=== PATIENT | female | born 1995 | race Caucasian/White ===

== ENCOUNTER 2020-08-27 20:17 | Emergency (ER) | payer OTHER, SELFPAY ==
[2020-08-27 20:49] VITALS: BP 102/70; PULSE 105; RESP 18; TEMP 37; O2SAT 96; BMI 34.0
--- NOTE | 2020-08-27 20:59 | ED.PREGNANCY ---
HPI - General Chief complaint: OB Stated complaint: 5 MONTHS PREG SPOTTING Time Seen by Provider: 08/27/20 20:58 Source: patient Mode of arrival: ambulatory Limitations: no limitations History of Present Illness HPI Narrative: This is a 25-year-old female at 19 and 3 currently with her 1st child and denies any complications thus far, receives her care at [facility]. She states she was recently treated for BV but has completed that course and states that for the past 3 days she has been having lower back discomfort that she has been treating with [id number] Tylenol 500 mg. in addition, patient states cramping discomfort bilaterally across the inguinal regions and states that she was most concerned that she had started developing spotting today that stained her underwear but denies any change in the inguinal and lower back discomfort that she had been experiencing. Otherwise, she denies urinary pain / burning / frequency, headaches, visual disturbance, shortness of breath, lower extremity swelling, fevers, chills. Related Data Allergies Allergy/AdvReac Type Severity Reaction Status Date / Time bee pollen [BEE STINGS] Allergy Severe ANAPHYLAXIS Unverified 06/15/20 16:33 Review of Systems Review of Systems: Pertinent positives and negatives as stated in HPI 10 point review of systems otherwise negative. PMFSH Past Medical History Source: nursing notes reviewed Medical History Asthma Social History Social History Alcohol intake: never Smoking Status: Never smoker Use of substances other than those prescribed or required for medical reasons: No Advance Directives: No Physical Exam Vital Signs: Vital Signs: Last Vital Signs Temp 97.8 F 08/27/20 23:40 Pulse 89 08/27/20 23:40 Resp 18 08/27/20 23:40 BP 98/62 08/27/20 23:40 Pulse Ox 98 08/27/20 23:40 Body Mass Index 34.0 VITAL SIGNS: Reviewed. GENERAL: Well developed, well nourished, in no acute distress. HEAD: Normocephalic/atraumatic, EYES: PERRLA, EOMI intact without pain, no nystagmus/pallor/icterus noted EARS: Ext canals without abnormality, TMs non-bulging and non-erythematous NOSE: Nares patent bilateral OROPHARYNX: no oral lesions noted, posterior pharynx clear and non-erythematous without noted tonsillar enlargement/erythema/exudates NECK: Supple, no adenopathy LUNGS: Normal breath sounds. No adventitious sounds or accessory muscle use. SpO2<96> CARDIOVASCULAR: Regular rate and rhythm without noted murmurs, no JVD or lower extremity edema. ABDOMEN: Soft, Gravid, non-tender, non-distended with bowel sounds. No rigidity. No guarding. No palpable masses or hernias noted MUSCULOSKELETAL: No tenderness, deformities, or effusions noted on gross inspection. EXTREMITIES: No cyanosis, clubbing or edema. SKIN: Inspection of the skin reveals no rashes, ulcerations, jaundice, pallor, or petechiae. NEUROLOGIC: Alert and oriented x 4. Strength and sensation to light touch were grossly intact x 4. Course Course Course Narrative: This is a 25-year-old female with history and clinical presentation suggestive of pain was spotting and otherwise uncomplicated will evaluate for previa, infection. Review of all investigation shows leukocytosis however this is felt to be likely as there is no evidence for infection of the urine and abdominal exam is benign and no respiratory symptoms. All chemistry results are within normal limits and ultrasound is negative for subchorionic hemorrhage and read as an anterior placenta ( no description of previa) with a closed cervix, active fetus with FHR- 143bpm. 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 She was provided with strict return precautions. MDM - OB/Uterine Contractions Lab Data Result diagrams: 08/27/20 21:10 08/27/20 21:10 Labs: Lab Results 08/27/20 08/27/20 08/27/20 Range/Units 21:10 21:10 21:10 WBC 14.5 H (4.8-10.8) X10*3/uL RBC 4.08 L (4.20-5.50) X10*6/uL Hgb 12.1 (12.0-16.0) g/dl Hct 36.4 L (37-47) % MCV 89.2 (80-98) fL MCH 29.7 (27.0-33.0) pg MCHC 33.2 (31.0-35.0) g/dl RDW 12.1 (11.0-16.0) % Plt Count 242 (160-400) X10*3/uL MPV 9.8 (9.4-12.3) fL Immature Gran % (Auto) 0.4 (0.0-0.4) % Neut % (Auto) 76.0 H (45-73) % Lymph % (Auto) 18.2 L (20-40) % [place] % (Auto) 4.5 (2-11) % Eos % (Auto) 0.7 (0-4) % Baso % (Auto) 0.2 (0-2) % Lymph # (Auto) 2.6 (1.2-4.9) X10*3/uL [place] # (Auto) 0.7 (0.1-1.2) X10*3/uL Eos # (Auto) 0.1 (0.0-0.4) X10*3/uL Baso # (Auto) 0.0 (0.0-0.2) X10*3/uL Abs Immat Gran (auto) 0.06 H (0.00-0.03) X10*3/uL Absolute Neuts (auto) 11.0 H (2.0-8.3) X10*3/uL Absolute Nucleated RBC 0.000 (0.0-0.012) X10*3/uL Nucleated RBC % (auto) 0.0 (0.0-0.2) /100WBC Sodium 137 (135-145) mmol/L Potassium 3.8 (3.3-5.1) mmol/l Chloride 104 (96-108) mmol/L Carbon Dioxide 23 (22-29) mmol/L Anion Gap 14 (12-20) BUN 7 L (9-16) mg/dL Creatinine 0.51 (0.5-1.4) mg/dL Estim Creat Clear Calc 164.6 Estimated GFR > 60 Random Glucose 90 (60-115) mg/dL Calcium 8.6 (8.4-10.2) mg/dL Total Bilirubin 0.3 (0.0-1.0) mg/dL AST 11 (5-31) U/L ALT 8 (0-31) U/L Alkaline Phosphatase 56 (39-117) U/L Total Protein 6.8 (6.5-8.0) g/dL Albumin 3.9 (3.5-5.0) g/dL Beta HCG, Quant 10833 mIU/mL Urine Color YELLOW Urine Appearance CLEAR Urine pH 6.5 (5.0-8.0) Ur Specific [place] 1.020 (1.005-1.025) Urine Protein NEG (NEG-TRACE) MG/DL Urine Glucose (UA) NEG (NEG) MG/DL Urine Ketones NEG (NEG) MG/DL Urine Blood 1+ H (NEG) Urine Nitrite NEG (NEG) Ur Leukocyte Esterase NEG (NEG) Urine RBC 1-4 (0) /HPF Urine WBC 0 (0-4) /HPF Ur Squamous Epith Cells TRACE /LPF Urine Bacteria TRACE /LPF Urine Test POSITIVE H (NEGATIVE) Blood Type 08/27/20 Range/Units 21:10 WBC (4.8-10.8) X10*3/uL RBC (4.20-5.50) X10*6/uL Hgb (12.0-16.0) g/dl Hct (37-47) % MCV (80-98) fL MCH (27.0-33.0) pg MCHC (31.0-35.0) g/dl RDW (11.0-16.0) % Plt Count (160-400) X10*3/uL MPV (9.4-12.3) fL Immature Gran % (Auto) (0.0-0.4) % Neut % (Auto) (45-73) % Lymph % (Auto) (20-40) % [place] % (Auto) (2-11) % Eos % (Auto) (0-4) % Baso % (Auto) (0-2) % Lymph # (Auto) (1.2-4.9) X10*3/uL [place] # (Auto) (0.1-1.2) X10*3/uL Eos # (Auto) (0.0-0.4) X10*3/uL Baso # (Auto) (0.0-0.2) X10*3/uL Abs Immat Gran (auto) (0.00-0.03) X10*3/uL Absolute Neuts (auto) (2.0-8.3) X10*3/uL Absolute Nucleated RBC (0.0-0.012) X10*3/uL Nucleated RBC % (auto) (0.0-0.2) /100WBC Sodium (135-145) mmol/L Potassium (3.3-5.1) mmol/l Chloride (96-108) mmol/L Carbon Dioxide (22-29) mmol/L Anion Gap (12-20) BUN (9-16) mg/dL Creatinine (0.5-1.4) mg/dL Estim Creat Clear Calc Estimated GFR Random Glucose (60-115) mg/dL Calcium (8.4-10.2) mg/dL Total Bilirubin (0.0-1.0) mg/dL AST (5-31) U/L ALT (0-31) U/L Alkaline Phosphatase (39-117) U/L Total Protein (6.5-8.0) g/dL Albumin (3.5-5.0) g/dL Beta HCG, Quant mIU/mL Urine Color Urine Appearance Urine pH (5.0-8.0) Ur Specific [place] (1.005-1.025) Urine Protein (NEG-TRACE) MG/DL Urine Glucose (UA) (NEG) MG/DL Urine Ketones (NEG) MG/DL Urine Blood (NEG) Urine Nitrite (NEG) Ur Leukocyte Esterase (NEG) Urine RBC (0) /HPF Urine WBC (0-4) /HPF Ur Squamous Epith Cells /LPF Urine Bacteria /LPF Urine Test (NEGATIVE) Blood Type O Positive Discharge Plan Discharge Clinical Impression: Vaginal bleeding during , Pain of round ligament during Patient Disposition: Home, Self-Care Additional Instructions: 1. Tylenol 1000 mg, orally, every 6 hours as needed for discomfort. Do not exceed 4000 mg within 24 hours. 2. You must call your tire molder 1st thing in the morning to discuss your visit here in this emergency department an arrangement for re-evaluation as indicated by that specialist. 3. please do not hesitate to return to the emergency department if you began experiencing worsening vaginal bleeding or begin experiencing worsening abdominal discomfort / cramping. The patient and/or family acknowledge understanding of results (as applicable), diagnosis, treatment plan, need for follow up, and symptoms that should prompt a return to the emergency room. Referrals: Physician,No [Primary Care Provider] - 2 days (Re-evaluation for vaginal spotting)
[2020-08-27] MEDS: 0.9 % Sodium Chloride 1,000 ML 1000 ML IV (21:12)
[2020-08-27 21:16] LABS: MANUAL DIFF FLAG NO
[2020-08-27 21:17] LABS: Basophils Percent Auto 0.2 % (0-2); Eosinophils Absolute Auto 0.1 X10*3/uL (0.0-0.4); Eosinophils Percent Auto 0.7 % (0-4); Hematocrit 36.4 % (37-47); Hemoglobin 12.1 g/dl (12.0-16.0); Imm Gran Abs Auto 0.06 X10*3/uL (0.00-0.03); Imm Gran Pct Auto 0.4 % (0.0-0.4); Lymphocytes Absolute Auto 2.6 X10*3/uL (1.2-4.9); Lymphocytes Percent Auto 18.2 % (20-40); Mean Corpuscular HGB Conc 33.2 g/dl (31.0-35.0); Mean Corpuscular Hemoglobin 29.7 pg (27.0-33.0); Mean Corpuscular Volume 89.2 fL (80-98); Mean Platelet Volume 9.8 fL (9.4-12.3); Monocytes Absolute Auto 0.7 X10*3/uL (0.1-1.2); Monocytes Percent Auto 4.5 % (2-11); Platelet Count 242 X10*3/uL (160-400); Red Blood Count 4.08 X10*6/uL (4.20-5.50); Red Cell Distribution Width 12.1 % (11.0-16.0); White Blood Count 14.5 X10*3/uL (4.8-10.8)
[2020-08-27 21:19] LABS: Glucose Urine UA NEG (NEG); Leukocyte Esterase Urine NEG (NEG); Nitrite Urine NEG (NEG); PH 6.5 (5.0-8.0); Urine Blood 1+ (NEG); Urine Ketones NEG (NEG); Urine Protein NEG (NEG-TRACE)
[2020-08-27 21:21] LABS: Appearance Urine CLEAR; Color Urine YELLOW; Urine Pregnancy POSITIVE (NEGATIVE)
[2020-08-27 21:22] LABS: UPreg QC Valid YES
--- NOTE | 2020-08-27 21:25 | US_ITS ---
EXAMINATION: ULTRASOUND OB LIMITED CLINICAL INFORMATION: . Spotting and cramping. COMPARISON: None TECHNIQUE: Limited transabdominal ultrasound performed of the fetus there is FINDINGS: Anteverted uterus. Cervical length 3.1 cm. Closed cervix. Anterior placenta. No subchorionic hemorrhage. Breech presentation of the fetus. Active fetus. Normal heart rate of 143 bpm. US/US OB limited IMPRESSION: Single live intrauterine . Normal heart rate.
[2020-08-27 21:42] LABS: Alanine Aminotransferase 8 U/L (0-31); Albumin Level 3.9 g/dL (3.5-5.0); Alkaline Phosphatase 56 U/L (39-117); Anion Gap 14 (12-20); Aspartate Amino Transferase 11 U/L (5-31); Bilirubin Total 0.3 mg/dL (0.0-1.0); Blood Urea Nitrogen 7 mg/dL (9-16); Calcium 8.6 mg/dL (8.4-10.2); Carbon Dioxide 23 mmol/L (22-29); Chloride 104 mmol/L (96-108); Creatinine Clr Calc Pharmacy 164.6; Estimated Glomerular Filt Rate > 60; Glucose Random 90 mg/dL (60-115); Potassium 3.8 mmol/l (3.3-5.1); Sodium 137 mmol/L (135-145); Total Protein 6.8 g/dL (6.5-8.0)
[2020-08-27 22:09] LABS: HCG Quantitative 24254 mIU/mL
[2020-08-27 22:38] LABS: Bacteria Urine TRACE /LPF; Squamous Epithelial Cell Urine TRACE /LPF; WBC Urine 0 /HPF (0-4)
[2020-08-27 22:42] VITALS: BP 115/70; PULSE 83; RESP 18; TEMP 36.6; O2SAT 99
[2020-08-27 23:40] VITALS: BP 98/62; PULSE 89; RESP 18; TEMP 36.6; O2SAT 98
== END 2020-08-28 01:06 | disposition home or self-care (01) ==
PROVIDERS: Emergency Provider Student in an Organized Health Care Education/Training Program
DX: O26.92 Pregnancy related conditions, unspecified, second trimester (principal); Z3A.20 20 weeks gestation of pregnancy; Z37.9 Outcome of delivery, unspecified
CPT/HCPCS: 36415; 76815; 80053; 81001; 81025; 84702; 85025; 86900; 86901; 96360; 99284

== ENCOUNTER 2020-09-26 10:43 | Emergency (ER) | payer OTHER, SELFPAY ==
[2020-09-26 11:09] VITALS: BP 107/64; PULSE 114; RESP 18; TEMP 36.3; O2SAT 97; BMI 34.0
[2020-09-26 16:11] LABS: MANUAL DIFF FLAG NO
[2020-09-26 16:13] LABS: Basophils Percent Auto 0.2 % (0-2); Eosinophils Absolute Auto 0.1 X10*3/uL (0.0-0.4); Eosinophils Percent Auto 0.6 % (0-4); Hematocrit 37.7 % (37-47); Hemoglobin 12.5 g/dl (12.0-16.0); Imm Gran Abs Auto 0.06 X10*3/uL (0.00-0.03); Imm Gran Pct Auto 0.4 % (0.0-0.4); Lymphocytes Absolute Auto 2.5 X10*3/uL (1.2-4.9); Lymphocytes Percent Auto 15.8 % (20-40); Mean Corpuscular HGB Conc 33.2 g/dl (31.0-35.0); Mean Corpuscular Volume 90.6 fL (80-98); Mean Platelet Volume 9.8 fL (9.4-12.3); Monocytes Absolute Auto 0.6 X10*3/uL (0.1-1.2); Monocytes Percent Auto 3.8 % (2-11); Neutrophils Absolute Auto 12.5 X10*3/uL (2.0-8.3); Neutrophils Percent Auto 79.2 % (45-73); Platelet Count 249 X10*3/uL (160-400); Red Blood Count 4.16 X10*6/uL (4.20-5.50); Red Cell Distribution Width 12.2 % (11.0-16.0); White Blood Count 15.7 X10*3/uL (4.8-10.8)
[2020-09-26 16:14] LABS: Glucose Urine UA NEG (NEG); Leukocyte Esterase Urine NEG (NEG); Nitrite Urine NEG (NEG); Urine Blood NEG (NEG); Urine Ketones NEG (NEG); Urine Protein NEG (NEG-TRACE)
[2020-09-26 16:17] LABS: Appearance Urine CLEAR; Color Urine YELLOW
[2020-09-26 16:36] LABS: Alanine Aminotransferase 9 U/L (0-31); Albumin Level 3.9 g/dL (3.5-5.0); Alkaline Phosphatase 67 U/L (39-117); Anion Gap 14 (12-20); Aspartate Amino Transferase 10 U/L (5-31); Bilirubin Total 0.3 mg/dL (0.0-1.0); Blood Urea Nitrogen 7 mg/dL (9-16); Calcium 8.7 mg/dL (8.4-10.2); Carbon Dioxide 24 mmol/L (22-29); Chloride 102 mmol/L (96-108); Creatinine Clr Calc Pharmacy 158.4; Estimated Glomerular Filt Rate > 60; Glucose Random 109 mg/dL (60-115); Potassium 3.8 mmol/l (3.3-5.1); Sodium 136 mmol/L (135-145); Total Protein 7.2 g/dL (6.5-8.0)
--- NOTE | 2020-09-26 19:22 | ED.ABDPAIN ---
HPI - Abdominal Pain General Chief Complaint: Abdominal Pain Stated Complaint: ?uti, 6 months Time Seen by Provider: 09/26/20 18:31 History of Present Illness HPI narrative: Patient 6 months complains of frequent urge to void and feeling of incompletely voiding and some suprapubic discomfort when she urinates, she has no vaginal bleeding, no other abdominal pain, she had a recent ultrasound showing a healthy intrauterine No vomiting no fever Related Data Previous Rx's Medication Instructions Recorded hydroxyzine HCl 25 mg PO BID PRN #20 tab 10/01/20 Allergies Allergy/AdvReac Type Severity Reaction Status Date / Time bee pollen [BEE STINGS] Allergy Severe ANAPHYLAXIS Unverified 06/15/20 16:33 Review of Systems Review of Systems Frequent urination Negatives are no fever no chills no dizziness no weakness no cough no shortness of breath no loss of appetite no difficulty swallowing no nausea no vomiting no diarrhea no discomfort with urination no burning with urination no back pain no rash Yes all other systems are reviewed and are negative Physical Exam Vital Signs: Vital Signs: Last Vital Signs Temp 97.3 F 09/26/20 11:09 Pulse 114 H 09/26/20 11:09 Resp 18 09/26/20 11:09 BP 107/64 09/26/20 11:09 Pulse Ox 97 09/26/20 11:09 Body Mass Index 34.0 General appearance is no distress, calm cooperative A&O x3 The pharynx is moist, and otherwise normal appearing The neck is supple Chest is clear to auscultation bilaterally with symmetric equal breath sounds The heart rate and rhythm regular no murmur The abdomen gravid and nontender Back no CVA tenderness Skin no rash Neuro no focal deficits Course Course Course Narrative: Urinalysis was normal and given that patient has no discomfort with urination UTI is very unlikely Symptoms are most likely from pressure on the bladder from her baby Repeat abdominal exam was nontender and patient was discharged most likely with discomfort of MDM - Abdominal Pain Lab Data Attestation: I reviewed the patient's lab results. Result diagrams: 09/26/20 16:02 09/26/20 16:02 Labs: Lab Results 09/26/20 09/26/20 09/26/20 Range/Units 16:02 16:02 16:02 WBC 15.7 H (4.8-10.8) X10*3/uL RBC 4.16 L (4.20-5.50) X10*6/uL Hgb 12.5 (12.0-16.0) g/dl Hct 37.7 (37-47) % MCV 90.6 (80-98) fL MCH 30.0 (27.0-33.0) pg MCHC 33.2 (31.0-35.0) g/dl RDW 12.2 (11.0-16.0) % Plt Count 249 (160-400) X10*3/uL MPV 9.8 (9.4-12.3) fL Immature Gran % (Auto) 0.4 (0.0-0.4) % Neut % (Auto) 79.2 H (45-73) % Lymph % (Auto) 15.8 L (20-40) % [place] % (Auto) 3.8 (2-11) % Eos % (Auto) 0.6 (0-4) % Baso % (Auto) 0.2 (0-2) % Lymph # (Auto) 2.5 (1.2-4.9) X10*3/uL [place] # (Auto) 0.6 (0.1-1.2) X10*3/uL Eos # (Auto) 0.1 (0.0-0.4) X10*3/uL Baso # (Auto) 0.0 (0.0-0.2) X10*3/uL Abs Immat Gran (auto) 0.06 H (0.00-0.03) X10*3/uL Absolute Neuts (auto) 12.5 H (2.0-8.3) X10*3/uL Absolute Nucleated RBC 0.000 (0.0-0.012) X10*3/uL Nucleated RBC % (auto) 0.0 (0.0-0.2) /100WBC Hold Blue Top SEE NOTE Sodium 136 (135-145) mmol/L Potassium 3.8 (3.3-5.1) mmol/l Chloride 102 (96-108) mmol/L Carbon Dioxide 24 (22-29) mmol/L Anion Gap 14 (12-20) BUN 7 L (9-16) mg/dL Creatinine 0.53 (0.5-1.4) mg/dL Estim Creat Clear Calc 158.4 Estimated GFR > 60 Random Glucose 109 (60-115) mg/dL Calcium 8.7 (8.4-10.2) mg/dL Total Bilirubin 0.3 (0.0-1.0) mg/dL AST 10 (5-31) U/L ALT 9 (0-31) U/L Alkaline Phosphatase 67 (39-117) U/L Total Protein 7.2 (6.5-8.0) g/dL Albumin 3.9 (3.5-5.0) g/dL Urine Color Urine Appearance Urine pH (5.0-8.0) Ur Specific [place] (1.005-1.025) Urine Protein (NEG-TRACE) MG/DL Urine Glucose (UA) (NEG) MG/DL Urine Ketones (NEG) MG/DL Urine Blood (NEG) Urine Nitrite (NEG) Ur Leukocyte Esterase (NEG) 09/26/20 Range/Units 16:02 WBC (4.8-10.8) X10*3/uL RBC (4.20-5.50) X10*6/uL Hgb (12.0-16.0) g/dl Hct (37-47) % MCV (80-98) fL MCH (27.0-33.0) pg MCHC (31.0-35.0) g/dl RDW (11.0-16.0) % Plt Count (160-400) X10*3/uL MPV (9.4-12.3) fL Immature Gran % (Auto) (0.0-0.4) % Neut % (Auto) (45-73) % Lymph % (Auto) (20-40) % [place] % (Auto) (2-11) % Eos % (Auto) (0-4) % Baso % (Auto) (0-2) % Lymph # (Auto) (1.2-4.9) X10*3/uL [place] # (Auto) (0.1-1.2) X10*3/uL Eos # (Auto) (0.0-0.4) X10*3/uL Baso # (Auto) (0.0-0.2) X10*3/uL Abs Immat Gran (auto) (0.00-0.03) X10*3/uL Absolute Neuts (auto) (2.0-8.3) X10*3/uL Absolute Nucleated RBC (0.0-0.012) X10*3/uL Nucleated RBC % (auto) (0.0-0.2) /100WBC Hold Blue Top Sodium (135-145) mmol/L Potassium (3.3-5.1) mmol/l Chloride (96-108) mmol/L Carbon Dioxide (22-29) mmol/L Anion Gap (12-20) BUN (9-16) mg/dL Creatinine (0.5-1.4) mg/dL Estim Creat Clear Calc Estimated GFR Random Glucose (60-115) mg/dL Calcium (8.4-10.2) mg/dL Total Bilirubin (0.0-1.0) mg/dL AST (5-31) U/L ALT (0-31) U/L Alkaline Phosphatase (39-117) U/L Total Protein (6.5-8.0) g/dL Albumin (3.5-5.0) g/dL Urine Color YELLOW Urine Appearance CLEAR Urine pH 6.0 (5.0-8.0) Ur Specific [place] 1.020 (1.005-1.025) Urine Protein NEG (NEG-TRACE) MG/DL Urine Glucose (UA) NEG (NEG) MG/DL Urine Ketones NEG (NEG) MG/DL Urine Blood NEG (NEG) Urine Nitrite NEG (NEG) Ur Leukocyte Esterase NEG (NEG) Discharge Plan Discharge Clinical Impression: Discomfort during Patient Disposition: Home, Self-Care Additional Instructions: The ultrasound from prior visit showed a healthy intrauterine Today we checked the heartbeat which was normal and healthy, your urine test did not show any urinary tract infection Other lab work did not show any significant abnormality Feelings of discomfort and pressure on the bladder are common in Follow with your habilitation training specialist OB provider Return to ER any time any worse condition or any concerns Prescriptions: No Action hydroxyzine HCl 25 mg tablet 25 mg PO BID PRN (Reason: anxiety) Qty: 20 RF: 0 Interventions: ED Discharge Assessment Last Done: 09/26/20 19:30 Discharge Date/Time: 09/26/20 19:31 [facility] Past Medical History Attestation statement: The following information was validated with the patient. [facility] Narrative: Patient is Source: nursing notes reviewed Medical History Asthma Social History Social History Alcohol intake: former Smoking Status: Former smoker Smoked in Last 30 Days: No Use of substances other than those prescribed or required for medical reasons: No Advance Directives: No Advance Directives Information Provided: No
== END 2020-09-26 19:31 | disposition home or self-care (01) ==
PROVIDERS: Emergency Provider Emergency Medicine
DX: O26.92 Pregnancy related conditions, unspecified, second trimester (principal); Z3A.24 24 weeks gestation of pregnancy
CPT/HCPCS: 36415; 80053; 81003; 85025; 99283

== ENCOUNTER 2020-10-01 01:19 | Emergency (ER) | payer OTHER, SELFPAY ==
[2020-10-01 01:23] VITALS: BP 107/65; PULSE 103; RESP 18; TEMP 36.9; O2SAT 100; BMI 34.0
[2020-10-01 02:42] VITALS: BP 101/64; PULSE 92; RESP 18; TEMP 36.7; O2SAT 98
--- NOTE | 2020-10-01 02:56 | ED.ANXIETY ---
HPI - Anxiety General Chief Complaint: Anxiety Stated Complaint: ANXIETY Time Seen by Provider: 10/01/20 02:55 Source: patient Mode of arrival: ambulatory Limitations: no limitations History of Present Illness HPI narrative: Patient is 6 months very anxious came for help. Patient with history of anxiety not taking any medication for last 1 year but because of home situation she is feeling very anxious denies any suicidal ideation denies any vaginal discharge or bleeding complaint: anxiety Onset (ago): hour(s) Related Data Previous Rx's Medication Instructions Recorded hydroxyzine HCl 25 mg PO BID PRN #20 tab 10/01/20 Allergies Allergy/AdvReac Type Severity Reaction Status Date / Time bee pollen [BEE STINGS] Allergy Severe ANAPHYLAXIS Unverified 06/15/20 16:33 Review of Systems Review of Systems: Yes all other systems are reviewed and are negative PENDING SALE TO [facility] Past Medical History Medical History Asthma Social History Social History Alcohol intake: former Smoking Status: Former smoker Smoked in Last 30 Days: No Use of substances other than those prescribed or required for medical reasons: No Advance Directives: No Advance Directives Information Provided: No Physical Exam Vital Signs: Vital Signs: Last Vital Signs Temp 98.1 F 10/01/20 02:42 Pulse 92 10/01/20 02:42 Resp 18 10/01/20 02:42 BP 101/64 10/01/20 02:42 Pulse Ox 98 10/01/20 02:42 Body Mass Index 34.0 Appearance: Alert. Oriented X3. No acute distress. Anxious appearing Eyes: Pupils equal, round and reactive to light. ENT: Pharynx normal. Neck: Normal inspection. Neck supple. CVS: Normal heart rate and rhythm. Pulses normal. Respiratory: No respiratory distress. Breath sounds normal. Abdomen: Soft and nontender. Bowel sounds are present, gravid uterus nontender no CVA tenderness heart rate 146 Skin: Skin warm and dry. Normal skin color. Normal skin turgor. Extremities: No lower extremity edema. Neuro: Oriented X 3. No motor deficit. No sensory deficit. Discharge Plan Discharge Clinical Impression: Acute anxiety Patient Disposition: Home, Self-Care Instructions: Anxiety (ED) Prescriptions: New hydroxyzine HCl 25 mg tablet 25 mg PO BID PRN (Reason: anxiety) Qty: 20 RF: 0
[2020-10-01] MEDS: hydrOXYzine HCL 25 MG TABLET PO (03:17)
== END 2020-10-01 04:08 | disposition home or self-care (01) ==
PROVIDERS: Emergency Provider Internal Medicine
DX: O26.92 Pregnancy related conditions, unspecified, second trimester (principal); Z3A.24 24 weeks gestation of pregnancy
CPT/HCPCS: 99284

== ENCOUNTER 2020-10-22 12:28 | Emergency (ER) | payer OTHER, SELFPAY ==
[2020-10-22 12:41] VITALS: BP 96/59; PULSE 102; RESP 18; TEMP 36.6; O2SAT 100; BMI 34.0
[2020-10-22 14:32] LABS: Glucose Urine UA NEG (NEG); Leukocyte Esterase Urine NEG (NEG); Nitrite Urine NEG (NEG); PH 5.5 (5.0-8.0); Specific Gravity - Urine 1.025 (1.005-1.025); Urine Blood TRACE (NEG); Urine Ketones NEG (NEG); Urine Protein NEG (NEG-TRACE)
[2020-10-22 14:33] LABS: Appearance Urine HAZY; Color Urine YELLOW
[2020-10-22 14:40] LABS: Bacteria Urine 2+ /LPF; Calcium Oxalate Crystals Urine TRACE /LPF; Mucus Urine 1+ /LPF; RBC Urine 0-2 /HPF (0); Squamous Epithelial Cell Urine 2+ /LPF
[2020-10-22 15:55] LABS: MANUAL DIFF FLAG NO
[2020-10-22 15:57] LABS: Basophils Percent Auto 0.1 % (0-2); Eosinophils Absolute Auto 0.1 X10*3/uL (0.0-0.4); Eosinophils Percent Auto 0.7 % (0-4); Hematocrit 35.4 % (37-47); Hemoglobin 11.7 g/dl (12.0-16.0); Imm Gran Abs Auto 0.08 X10*3/uL (0.00-0.03); Imm Gran Pct Auto 0.5 % (0.0-0.4); Lymphocytes Absolute Auto 2.2 X10*3/uL (1.2-4.9); Lymphocytes Percent Auto 14.6 % (20-40); Mean Corpuscular HGB Conc 33.1 g/dl (31.0-35.0); Mean Corpuscular Hemoglobin 29.9 pg (27.0-33.0); Mean Corpuscular Volume 90.5 fL (80-98); Mean Platelet Volume 9.9 fL (9.4-12.3); Monocytes Absolute Auto 0.6 X10*3/uL (0.1-1.2); Neutrophils Absolute Auto 12.1 X10*3/uL (2.0-8.3); Neutrophils Percent Auto 80.1 % (45-73); Platelet Count 240 X10*3/uL (160-400); Red Blood Count 3.91 X10*6/uL (4.20-5.50); Red Cell Distribution Width 12.1 % (11.0-16.0)
--- NOTE | 2020-10-22 16:15 | ED.GENADULT ---
HPI - General Adult General Chief complaint: General Medical Stated complaint: vaginal bleeding Time Seen by Provider: 10/22/20 15:49 Source: patient Mode of arrival: ambulatory Limitations: no limitations History of Present Illness HPI narrative: 25 yo female with past medical history of asthma, currently 26 weeks preganant here with BRB from rectum x several days, acute on chronic. Noticed when wiping on toilet paper after bowel movements. Has had intermittent rectal bleeding over the last 5-6 months. No abdominal pain, vomiting. Has had constipation and painful bowel movements. Was taking colace but is no longer taking this. Onset (ago): day(s) Related Data Previous Rx's Medication Instructions Recorded hydroxyzine HCl 25 mg PO BID PRN #20 tab 10/01/20 docusate sodium [Colace] 100 mg PO BID #30 cap 10/22/20 polyethylene glycol 3350 [Miralax] 17 g PO DAILY #14 ea 10/22/20 Allergies Allergy/AdvReac Type Severity Reaction Status Date / Time bee pollen [BEE STINGS] Allergy Severe ANAPHYLAXIS Unverified 06/15/20 16:33 Review of Systems Review of Systems: Yes all other systems are reviewed and are negative Constitutional: Constitutional: Reports no additional constitutional complaints, Denies body ache(s), Denies chills, Denies fever(s), Denies headache(s) and Denies weakness Eyes: Eyes: Reports no additional eye complaints and Denies change in vision ENT: Reports system reviewed and no additional complaints, except as documented, Denies dizziness, Denies headache(s), Denies nasal congestion, Denies nasal discharge and Denies neck pain Cardiovascular: Cardiovascular: Reports no additional cardiovascular complaints, Denies chest pain, Denies leg edema and Denies dyspnea Respiratory: Respiratory: Reports no additional respiratory complaints, Denies cough and Denies dyspnea Gastrointestinal: Gastrointestinal: Reports no additional gastrointestinal complaints, Denies abdominal pain, Reports hematochezia, Reports constipation, Denies diarrhea, Denies nausea and Denies vomiting Genitourinary: Genitourinary: Reports no additional female genitourinary complaints and Denies urinary incontinence Musculoskeletal: Musculoskeletal: Reports no additional musculoskeletal complaints, Denies back pain, Denies arthralgias, Denies joint swelling, Denies neck pain, Denies numbness and Denies tingling Integumentary/Breasts: Skin/Breast: Reports system reviewed and no additional complaints, except as docu and Denies rash Neurologic: Reports system reviewed and no additional complaints, except as documented, Denies Abnormal speech present, Denies dizziness, Denies headache(s), Denies numbness, Denies tingling and Denies weakness PMFSH Past Medical History Attestation statement: The following information was validated with the patient. Source: nursing notes reviewed Medical History Asthma Social History Social History Alcohol intake: former Smoking Status: Former smoker Advance Directives: No Advance Directives Information Provided: No Physical Exam Vital Signs: Vital Signs: Last Vital Signs Temp 98 F 10/22/20 12:41 Pulse 93 10/22/20 16:37 Resp 16 10/22/20 16:37 BP 103/54 L 10/22/20 16:37 Pulse Ox 99 10/22/20 16:37 Body Mass Index 34.0 Const: General: cooperative, healthy appearing, comfortable and no acute distress Orientation/consciousness: patient oriented x3 Limitations: no limitations HENMT: Head: Yes normal to inspection Ears: hearing grossly normal bilaterally General nose exam: Normal external nose present Face and sinus: Yes normal facial exam Mouth: Normal oral and palatal mucosa present Throat: Yes posterior oropharynx normal Eyes: General: appearance normal, both eyes and all related structures Pupils: Equal, round and reactive pupils present Neck: Neck: Yes normal visual inspection Chest: Chest palpation & inspection: normal inspection of the chest Resp: Effort & Inspection: normal respiratory effort Auscultation: clear to auscultation bilaterally Cardio: Rate: regular rate Rhythm: regular rhythm Peripheral pulses: Peripheral pulses 2+ throughout GI: Inspection: Yes normal to inspection Palpation (GI): Soft to palpation and nontender Auscultation: normal bowel sounds Rectal Exam - Female: deferred, visual inspection normal, normal sphincter tone and External hemorrhoid(s) present Back/Spine/Pelvis: Thoracic/Lumbar Spine: thoracic and lumbar spine normal to inspection Skin: General skin exam: no rashes or lesions noted Neuro: General: patient oriented x3, no focal motor deficits and normal sensation to monofilament Cranial nerves: Yes Equal, round and reactive pupils present Cognition (Neuro): normal cognition Speech: No Abnormal speech present Gait exam (Neuro): Normal gait present Motor exam (neuro): 5/5 motor strength present throughout Extrem: General: Yes normal to inspection Course Course Course Narrative: 25 yo female here with BRB from rectum acute on chronic x 3 days with constipation and painful bowel movements. No other associated symptoms. Exam c/w with hemorrhoids-brown stool on exam. Will check labs, occult stool. 1700-HGB stable. All other labs unremarkable. Does have mild leukyocytosis however on review of chart this is unchanged from previous CBC's. No fever, tachycardia or any signs of infection. Rectal exam shows brown stool. +hemorrhoids on exam. Occult + for blood. Less likely GI bleed with stool brown and stable hgb and based on HPI. Patient was monitored in the ED for several hours with no episodes. FHT 148. No related complaints. Reviewed avoiding constipation and care for hemorrhoids at home. Also discussed close f/u with OB. Reviewed worrisome signs/symptoms (bloody diarrhea, 2 or more vomiting episodes, severe abdominal pain, fever >100.4) and when to seek care in the ED> comfortable with discharge home. Medical Decision Making Medical Records Medical records reviewed: Yes I reviewed the patient's medical records. Lab Data Lab results reviewed: Yes I reviewed the patient's lab results. Result diagrams: 10/22/20 15:44 10/22/20 15:44 Labs: Lab Results 10/22/20 10/22/20 10/22/20 Range/Units 14:12 15:44 15:44 WBC 15.0 H (4.8-10.8) X10*3/uL RBC 3.91 L (4.20-5.50) X10*6/uL Hgb 11.7 L (12.0-16.0) g/dl Hct 35.4 L (37-47) % MCV 90.5 (80-98) fL MCH 29.9 (27.0-33.0) pg MCHC 33.1 (31.0-35.0) g/dl RDW 12.1 (11.0-16.0) % Plt Count 240 (160-400) X10*3/uL MPV 9.9 (9.4-12.3) fL Immature Gran % (Auto) 0.5 H (0.0-0.4) % Neut % (Auto) 80.1 H (45-73) % Lymph % (Auto) 14.6 L (20-40) % [place] % (Auto) 4.0 (2-11) % Eos % (Auto) 0.7 (0-4) % Baso % (Auto) 0.1 (0-2) % Lymph # (Auto) 2.2 (1.2-4.9) X10*3/uL [place] # (Auto) 0.6 (0.1-1.2) X10*3/uL Eos # (Auto) 0.1 (0.0-0.4) X10*3/uL Baso # (Auto) 0.0 (0.0-0.2) X10*3/uL Abs Immat Gran (auto) 0.08 H (0.00-0.03) X10*3/uL Absolute Neuts (auto) 12.1 H (2.0-8.3) X10*3/uL Absolute Nucleated RBC 0.000 (0.0-0.012) X10*3/uL Nucleated RBC % (auto) 0.0 (0.0-0.2) /100WBC Sodium 137 (135-145) mmol/L Potassium 4.3 (3.3-5.1) mmol/l Chloride 105 (96-108) mmol/L Carbon Dioxide 23 (22-29) mmol/L Anion Gap 13 (12-20) BUN 8 L (9-16) mg/dL Creatinine 0.49 L (0.5-1.4) mg/dL Estim Creat Clear Calc 171.4 Estimated GFR > 60 Random Glucose 70 D (60-115) mg/dL Calcium 8.5 (8.4-10.2) mg/dL Urine Color YELLOW Urine Appearance HAZY Urine pH 5.5 (5.0-8.0) Ur Specific [place] 1.025 (1.005-1.025) Urine Protein NEG (NEG-TRACE) MG/DL Urine Glucose (UA) NEG (NEG) MG/DL Urine Ketones NEG (NEG) MG/DL Urine Blood TRACE (NEG) Urine Nitrite NEG (NEG) Ur Leukocyte Esterase NEG (NEG) Urine RBC 0-2 (0) /HPF Urine WBC 1-4 (0-4) /HPF Ur Squamous Epith Cells 2+ /LPF Calcium Oxalate Crystal TRACE /LPF Urine Bacteria 2+ /LPF Urine Mucus 1+ /LPF Stool Occult Blood (NEG) 10/22/20 Range/Units 16:14 WBC (4.8-10.8) X10*3/uL RBC (4.20-5.50) X10*6/uL Hgb (12.0-16.0) g/dl Hct (37-47) % MCV (80-98) fL MCH (27.0-33.0) pg MCHC (31.0-35.0) g/dl RDW (11.0-16.0) % Plt Count (160-400) X10*3/uL MPV (9.4-12.3) fL Immature Gran % (Auto) (0.0-0.4) % Neut % (Auto) (45-73) % Lymph % (Auto) (20-40) % [place] % (Auto) (2-11) % Eos % (Auto) (0-4) % Baso % (Auto) (0-2) % Lymph # (Auto) (1.2-4.9) X10*3/uL [place] # (Auto) (0.1-1.2) X10*3/uL Eos # (Auto) (0.0-0.4) X10*3/uL Baso # (Auto) (0.0-0.2) X10*3/uL Abs Immat Gran (auto) (0.00-0.03) X10*3/uL Absolute Neuts (auto) (2.0-8.3) X10*3/uL Absolute Nucleated RBC (0.0-0.012) X10*3/uL Nucleated RBC % (auto) (0.0-0.2) /100WBC Sodium (135-145) mmol/L Potassium (3.3-5.1) mmol/l Chloride (96-108) mmol/L Carbon Dioxide (22-29) mmol/L Anion Gap (12-20) BUN (9-16) mg/dL Creatinine (0.5-1.4) mg/dL Estim Creat Clear Calc Estimated GFR Random Glucose (60-115) mg/dL Calcium (8.4-10.2) mg/dL Urine Color Urine Appearance Urine pH (5.0-8.0) Ur Specific [place] (1.005-1.025) Urine Protein (NEG-TRACE) MG/DL Urine Glucose (UA) (NEG) MG/DL Urine Ketones (NEG) MG/DL Urine Blood (NEG) Urine Nitrite (NEG) Ur Leukocyte Esterase (NEG) Urine RBC (0) /HPF Urine WBC (0-4) /HPF Ur Squamous Epith Cells /LPF Calcium Oxalate Crystal /LPF Urine Bacteria /LPF Urine Mucus /LPF Stool Occult Blood POS (NEG) Discharge Plan Discharge Clinical Impression: Hemorrhoids Qualifiers: Hemorrhoid type: unspecified Qualified Code(s): K64.9 - Unspecified hemorrhoids Patient Disposition: Home, Self-Care Instructions: Hemorrhoids (ED) Additional Instructions: Avoid constipation Drink plenty of fluids, eat fiber Buy over the counter preparation H Follow-up with your OB Prescriptions: New polyethylene glycol 3350 [Miralax] 17 gram powder in packet 17 g PO DAILY Qty: 14 RF: 0 docusate sodium [Colace] 100 mg capsule 100 mg PO BID Qty: 30 RF: 0 No Action hydroxyzine HCl 25 mg tablet 25 mg PO BID PRN (Reason: anxiety) Qty: 20 RF: 0 Referrals: Physician,None [Primary Care Provider] - 2 days Interventions: ED Discharge Assessment Last Done: 10/22/20 16:54 Discharge Date/Time: 10/22/20 16:58
[2020-10-22 16:27] LABS: Anion Gap 13 (12-20); Blood Urea Nitrogen 8 mg/dL (9-16); Calcium 8.5 mg/dL (8.4-10.2); Carbon Dioxide 23 mmol/L (22-29); Chloride 105 mmol/L (96-108); Creatinine Clr Calc Pharmacy 171.4; Estimated Glomerular Filt Rate > 60; Glucose Random 70 mg/dL (60-115); Potassium 4.3 mmol/l (3.3-5.1); Sodium 137 mmol/L (135-145)
[2020-10-22 16:35] LABS: OBS1 POS (NEG)
[2020-10-22 16:36] LABS: OBS Int Ctl Valid YES
[2020-10-22 16:37] VITALS: BP 103/54; PULSE 93; RESP 16; O2SAT 99
--- NOTE | 2020-10-22 16:48 | PC.NURSE ---
heart rate was 148 strong and regular
== END 2020-10-22 16:58 | disposition home or self-care (01) ==
PROVIDERS: Nurse Practitioner Family; Emergency Provider Internal Medicine
DX: O26.90 Pregnancy related conditions, unspecified, unspecified trimester (principal); N93.9 Abnormal uterine and vaginal bleeding, unspecified; K64.9 Unspecified hemorrhoids; Z3A.26 26 weeks gestation of pregnancy; Z87.891 Personal history of nicotine dependence; Z79.899 Other long term (current) drug therapy
CPT/HCPCS: 36415; 80048; 81001; 82272; 85025; 99283

== ENCOUNTER 2021-07-19 16:36 | Emergency (ER) | payer MEDICAID, SELFPAY ==
[2021-07-19 16:55] VITALS: BP 122/80; PULSE 104; RESP 18; TEMP 36.1; O2SAT 98; BMI 34.0
--- NOTE | 2021-07-19 19:23 | ED.FEMALEGU ---
HPI - Female Genitourinary General Chief complaint: Urogenital-Female Stated complaint: STD check Time Seen by Provider: 07/19/21 18:37 Source: patient Mode of arrival: ambulatory History of Present Illness HPI Narrative: 26-year-old female with a past medical history of asthma, presenting to the ED complaining of vaginal sores, dysuria, and vaginal discharge x1 week. Reports recently and tested negative for CT/NG, and had negative UA on 07/15. States boyfriend recently told her he had multiple sexual partners. Reports difficulty urinating secondary to pain. Denies fever, chills, abdominal pain, nausea/vomiting, flank pain, vaginal bleeding MD elicited complaint: dysuria, UTI , vaginal discharge, possible STD and genital rash Related Data Previous Rx's Medication Instructions Recorded hydroxyzine HCl 25 mg tablet 25 mg PO BID PRN #20 tab 10/01/20 docusate sodium 100 mg capsule 100 mg PO BID #30 cap 10/22/20 (Colace) polyethylene glycol 3350 17 gram 17 g PO DAILY #14 ea 10/22/20 oral powder packet (Miralax) nitrofurantoin 100 mg PO Q12H 7 Days #14 cap 07/19/21 monohydrate/macrocrystals 100 mg capsule (Macrobid) valacyclovir 1 gram tablet 1,000 mg PO Q12H 7 Days #14 tab 07/19/21 (Valtrex) Allergies Allergy/AdvReac Type Severity Reaction Status Date / Time bee pollen [BEE STINGS] Allergy Severe ANAPHYLAXIS Verified 07/19/21 16:58 Review of Systems Review of Systems: Constitutional: No Fever, No Chills, No Fatigue, No Malaise ENT/Mouth: No Ear Pain, No Nasal Congestion, No sore throat Eyes: No Eye Pain, No Swelling, No Redness Cardiovascular: No Chest Pain, No SOB, No Palpitations Respiratory: No Cough, No Dyspnea Gastrointestinal: No Nausea, No Vomiting, No Diarrhea, No Constipation, No Abdominal pain, No Hematochezia, No Melena Genitourinary: No irregular bleeding, + Dysuria, No Urinary Frequency, No Hematuria, No Urinary Incontinence, No Flank Pain, + vaginal sore/lesions, vaginal discharge Musculoskeletal: No joint pain, No Myalgias, No Joint Swelling Skin: No Skin Lesions, No rash Neuro: No Weakness, No Headache Yes all other systems are reviewed and are negative [facility] Past Medical History Attestation statement: The following information was validated with the patient. Medical History Asthma Social History Social History Alcohol intake: former Advance Directives: No Advance Directives Information Provided: No Patient : No Physical Exam Vital Signs: Vital Signs: Last Vital Signs Temp 97 F 07/19/21 16:55 Pulse 104 H 07/19/21 16:55 Resp 18 07/19/21 16:55 BP 122/80 07/19/21 16:55 Pulse Ox 98 07/19/21 16:55 Body Mass Index 34.0 Const: Other: Tearful General: cooperative, healthy appearing, no acute distress and anxious Orientation/consciousness: patient oriented x3 Limitations: no limitations HENMT: Head: Yes normal to inspection Ears: hearing grossly normal bilaterally General nose exam: Normal external nose present Face and sinus: Yes normal facial exam Eyes: General: appearance normal, both eyes and all related structures EOM: EOMs intact bilaterally Neck: Neck: Yes normal visual inspection Resp: Effort & Inspection: normal respiratory effort and no respiratory distress Cardio: Rate: regular rate GI: Inspection: Yes normal to inspection Palpation (GI): Soft to palpation, nontender, no guarding and not rigid : Other: Speculum exam deferred. + multiple vaginal ulcerations noted to labia minor and major with erythema. +White external vaginal discharge noted. Lesions very tender to palpation. No evidence of cellulitis. Skin: Rashes: no rashes Wounds: no wounds Neuro: General: patient oriented x3 Gait exam (Neuro): Normal gait present Extrem: General: Yes normal to inspection Course Course Course Narrative: -UA with 4+ epithelials, 10-14 wbc's and leuk esterase, likely contaminant however patient is symptomatic will treat with Macrobid MDM - Female Genitourinary MDM Narrative Medical decision making narrative: 26-year-old female with a past medical history of asthma, presenting to the ED complaining of vaginal sores, dysuria, and vaginal discharge x1 week. Reports recently and tested negative for CT/NG, and had negative UA on 07/15. On exam tachyacrdic, anxious, tearful, NAD, physical exam as above, consistent with herpes simplex. Concern for other STIs, patient unable to tolerate speculum exam, deferred at this time, discussed with patient should follow-up with [facility] for complete STI testing. Will treat for herpes and candidiasis. Patient received 1st dose of Valtrex and 150 mg of Diflucan in the ED Medical Records Attestation: I reviewed the patient's medical records. Lab Data Attestation: I reviewed the patient's lab results. Labs: Lab Results 07/19/21 07/19/21 Range/Units 19:23 19:23 Urine Color YELLOW Urine Appearance CLOUDY Urine pH 6.5 (5.0-8.0) Ur Specific [place] 1.025 (1.005-1.025) Urine Protein TRACE (NEG-TRACE) MG/DL Urine Glucose (UA) NEG (NEG) MG/DL Urine Ketones 5 (NEG) MG/DL Urine Blood TRACE (NEG) Urine Nitrite NEG (NEG) Ur Leukocyte Esterase 2+ H (NEG) Urine RBC 1-4 (0) /HPF Urine WBC 10-14 H (0-4) /HPF Ur Squamous Epith Cells 4+ /LPF Urine Bacteria 2+ /LPF Urine Mucus 4+ /LPF Urine Test NEGATIVE (NEGATIVE) Discharge Plan Discharge Clinical Impression: Female genital lesion Urinary tract infection Qualifiers: Urinary tract infection type: acute cystitis Hematuria presence: without hematuria Qualified Code(s): N30.00 - Acute cystitis without hematuria Patient Disposition: Home, Self-Care Instructions: Genital Herpes Simplex (ED), Yeast Infection (ED), Urinary Tract Infection in Women (ED) Additional Instructions: Your tested for herpes stay in the ED, the culture should be back in 2-3 days, you will be called for positive result, however you were treated, Valtrex is an antiviral, continue to take as prescribed to complete treatment Your also given a 1 time dose of Diflucan to treat a yeast infection Your urine also looks infected, Macrobid is an antibiotic, please take as prescribed Refrain from any sexual contact into you know the results of her cultures Please follow-up with [facility] for further STI testing including HIV and syphilis If her symptoms persist or worsen, pain becomes unbearable, you are unable to pee, develop abdominal pain, nausea, or vomiting return to the ED Prescriptions: New valacyclovir [Valtrex] 1 gram tablet 1,000 mg PO Q12H 7 Days Qty: 14 RF: 0 nitrofurantoin monohyd/m-cryst [Macrobid] 100 mg capsule 100 mg PO Q12H 7 Days Qty: 14 RF: 0 No Action hydroxyzine HCl 25 mg tablet 25 mg PO BID PRN (Reason: anxiety) Qty: 20 RF: 0 polyethylene glycol 3350 [Miralax] 17 gram powder in packet 17 g PO DAILY Qty: 14 RF: 0 docusate sodium [Colace] 100 mg capsule 100 mg PO BID Qty: 30 RF: 0 Referrals: Galindo Whitley MD [Physician] - 2 days
[2021-07-19 19:30] LABS: Appearance Urine CLOUDY; Color Urine YELLOW; Glucose Urine UA NEG (NEG); Leukocyte Esterase Urine 2+ (NEG); Nitrite Urine NEG (NEG); PH 6.5 (5.0-8.0); Specific Gravity - Urine 1.025 (1.005-1.025); UACC Culture Trigger YES; Urine Blood TRACE (NEG); Urine Ketones 5 MG/DL (NEG); Urine Protein TRACE MG/DL (NEG-TRACE)
[2021-07-19 19:32] LABS: UPreg QC Valid YES; Urine Pregnancy NEGATIVE (NEGATIVE)
[2021-07-19] MEDS: Fluconazole 150 MG TABLET PO (19:38)
[2021-07-19 19:40] LABS: Bacteria Urine 2+ /LPF; Mucus Urine 4+ /LPF; Squamous Epithelial Cell Urine 4+ /LPF
[2021-07-19] MEDS: Nitrofurantoin Monohyd/M-Cryst 100 MG CAPSULE PO (20:29)
== END 2021-07-19 20:37 | disposition home or self-care (01) ==
PROVIDERS: Physician Assistant; Emergency Provider Emergency Medicine
DX: N30.00 Acute cystitis without hematuria (principal); Z20.2 Contact with and (suspected) exposure to infections with a predominantly sexual mode of transmission; Z79.899 Other long term (current) drug therapy
CPT/HCPCS: 36415; 81001; 81025; 87086; 87255; 99283; 99284

== ENCOUNTER 2022-11-18 10:50 | Emergency (ER) | payer OTHER, SELFPAY ==
--- NOTE | ~2022-11-18 | US_ITS ---
EXAMINATION: ULTRASOUND PELVIC, COMPLETE CLINICAL INFORMATION: Vaginal bleeding and cramping. Left adnexal tenderness to palpation. COMPARISON: None. TECHNIQUE: Transvaginal: Used to better visualize pelvic structures Transabdominal: Not adequate for visualization Spectral Doppler and color Doppler exam was utilized. LMP: Current FINDINGS: UTERUS: Uterus is retroverted and retroflexed. No uterine lesion. Uterus measures 7.3 x 4.5 x 4.8 cm. Endometrial thickness 0.2 cm ADNEXA: Ovarian vascularity:Doppler demonstrates both arterial and venous vascular flow in the right and left ovary. No evidence of ovarian torsion. Right Ovary: Unremarkable. 2.8 x 2.1 x 2.3 cm. Volume 7.1 mL. Left Ovary: Unremarkable. 3.1 x 2.2 x 1.6 cm. Volume 5.7 mL Cul-de-sac: No Fluid US/US pelvic and transvaginal IMPRESSION: Normal ultrasound of the pelvis.
--- NOTE | 2022-11-18 11:47 | ED_ITS ---
HPI - Female Genitourinary General Chief complaint: Vaginal Bleeding <DAYANA Braun - Last Filed: 11/18/22 11:51> Stated complaint: Vaginal bleeding X2 weeks <DAYANA Braun - Last Filed: 11/18/22 11:51> Time Seen by Provider: 11/18/22 15:06 <DAYANA Braun - Last Filed: 11/18/22 11:51> Source: patient <DAYANA Marshall - Last Filed: 11/18/22 18:02> Mode of arrival: ambulatory <DAYANA Marshall Last Filed: 11/18/22 18:02> History of Present Illness HPI Narrative: 27-year-old female with a past medical history of asthma presenting to the ED complaining of heavy vaginal bleeding x 14 days, filling about 10 thin pads daily. Reports bright red blood with some clotting, and associated lightheadedness and lower abdominal/low back cramping. Denies fever, chills, nausea, vomiting, vaginal discharge, syncope, dysuria, flank pain <DAYANA Marshall - Last Filed: 11/18/22 18:02> MD elicited complaint: vaginal bleeding <DAYANA Marshall Last Filed: 11/18/22 18:02> Related Data Home medications: Previous Rx's Medication Instructions Recorded hydroxyzine HCl 25 mg tablet 25 mg PO BID PRN anxiety #20 tabs 10/01/20 docusate sodium 100 mg capsule 100 mg PO BID #30 caps 10/22/20 (Colace) polyethylene glycol 3350 17 gram 17 g PO DAILY #14 ea 10/22/20 oral powder packet (Miralax) nitrofurantoin 100 mg PO Q12H 7 days #14 caps 07/19/21 monohydrate/macrocrystals 100 mg capsule (Macrobid) valacyclovir 1 gram tablet 1,000 mg PO Q12H 7 days #14 tabs 07/19/21 (Valtrex) <DAYANA Braun Last Filed: 11/18/22 11:51> Allergies/Adverse reactions: Allergies Allergy/AdvReac Type Severity Reaction Status Date / Time bee pollen [BEE STINGS] Allergy Severe ANAPHYLAXIS Verified 11/18/22 11:48 <DAYANA Braun Last Filed: 11/18/22 11:51> Review of Systems Review of Systems: Constitutional: No Fever, No Chills, + Fatigue, No Malaise ENT/Mouth: No Ear Pain, No Nasal Congestion, No sore throat, No Rhinorrhea, No Swallowing Difficulty Eyes: No Eye Pain, No Swelling, No Vision Changes Cardiovascular: No Chest Pain, No SOB, No Edema, No Palpitations Respiratory: No Cough, No Sputum, No Dyspnea Gastrointestinal: No Nausea, No Vomiting, No Diarrhea, No Constipation, + Abdominal pain Genitourinary: + irregular bleeding, No Dysuria, No Urinary Frequency, No Hem aturia, No Flank Pain Musculoskeletal: No joint pain, No Myalgias, No Joint Swelling Skin: No Skin Lesions, No rash Neuro: No Weakness, No Loss of Consciousness, + lightheaded, No Headache <DAYANA Marshall - Last Filed: 11/18/22 18:02> Yes all other systems are reviewed and are negative <DAYANA Marshall - Last Filed: 11/18/22 18:02> Constitutional: Constitutional: Reports as per HPI <DAYANA Marshall - Last Filed: 11/18/22 18:02> [facility] Past Medical History Attestation statement: The following information was validated with the patient. <DAYANA Marshall - Last Filed: 11/18/22 18:02> Medical History: Medical History Asthma <DAYANA Braun - Last Filed: 11/18/22 11:51> Social History Social History: Social History Alcohol intake: former Advance Directives: No Advance Directives Information Provided: No <DAYANA Braun - Last Filed: 11/18/22 11:51> Physical Exam Vital Signs: Vital Signs: Last Vital Signs Temp 98.5 F 11/18/22 14:24 Pulse 84 11/18/22 14:24 Resp 16 11/18/22 14:24 BP 123/85 11/18/22 14:24 Pulse Ox 99 11/18/22 14:24 O2 Del Method 11/18/22 14:24 BMI result Body Mass Index 36.2 <DAYANA Braun - Last Filed: 11/18/22 11:51> Vital Signs: Last Vital Signs Temp 98.5 F 11/18/22 14:24 Pulse 84 11/18/22 14:24 Resp 16 11/18/22 14:24 BP 123/85 11/18/22 14:24 Pulse Ox 99 11/18/22 14:24 O2 Del Method 11/18/22 14:24 BMI result Body Mass Index 36.2 <DAYANA Marshall - Last Filed: 11/18/22 18:02> Const: General: cooperative, healthy appearing and no acute distress <DAYANA Marshall - Last Filed: 11/18/22 18:02> Orientation/consciousness: patient oriented x3 <DAYANA Marshall - Last Filed: 11/18/22 18:02> Limitations: no limitations <DAYANA Marshall - Last Filed: 11/18/22 18:02> HEENT: Head: Yes normal to inspection and Yes atraumatic <DAYANA Marshall - Last Filed: 11/18/22 18:02> Ears: hearing grossly normal bilaterally <DAYANA Marshall - Last Filed: 11/18/22 18:02> General nose exam: Normal external nose present <DAYANA Marshall - Last Filed: 11/18/22 18:02> Face and sinus: Yes normal facial exam <DAYANA Marshall - Last Filed: 11/18/22 18:02> Eyes: General: appearance normal, both eyes and all related structures <DAYANA Marshall - Last Filed: 11/18/22 18:02> EOM: EOMs intact bilaterally <DAYANA Marshall - Last Filed: 11/18/22 18:02> Neck: Neck: Yes normal visual inspection and Yes no meningeal signs <DAYANA Marshall - Last Filed: 11/18/22 18:02> Resp: Effort & Inspection: normal respiratory effort and no respiratory distress <DAYANA Marshall - Last Filed: 11/18/22 18:02> Auscultation: clear to auscultation bilaterally <DAYANA Marshall - Last Filed: 11/18/22 18:02> Cardio: Rate: regular rate <Brooklynn Stack PA - Last Filed: 11/18/22 18:02> Heart sounds: S1 normal heart sound present and S2 normal heart sound present <Brooklynn Stack PA - Last Filed: 11/18/22 18:02> GI: Inspection: Yes normal to inspection <Brooklynn Stack PA - Last Filed: 11/18/22 18:02> Palpation (GI): Soft to palpation, Tenderness to palpation present (GI) suprapubicly, no guarding and not rigid <Brooklynn Stack PA - Last Filed: 18:02> : Other: No active bleeding/hemorrhage <Brooklynn Stack PA - Last Filed: 11/18/22 18:02> General: Yes no CVA tenderness <Brooklynn Stack PA - Last Filed: 11/18/22 18:02> Speculum Exam - Vagina: no lacerations and no lesions <Brooklynn Stack PA - Last Filed: 11/18/22 18:02> Speculum Exam - Cervix: Abnormal cervical discharge present bloody (brown) and nontender <Brooklynn Stack PA - Last Filed: 11/18/22 18:02> Bimanual exam- vagina & uterus: No Cervical tenderness present <Brooklynn Stack PA - Last Filed: 11/18/22 18:02> Bimanual Exam- Adnexa, other: tender on the left <Brooklynn Stack PA - Last Filed: 11/18/22 18:02> Back/Spine/Pelvis: Back: no CVA tenderness <Brooklynn Stack PA - Last Filed: 11/18/22 18:02> Skin: Rashes: no rashes <Brooklynn Stack PA - Last Filed: 11/18/22 18:02> Wounds: no wounds <Brooklynn Stack PA - Last Filed: 11/18/22 18:02> Neuro: General: patient oriented x3, tone normal and no meningeal signs <Brooklynn Stack PA - Last Filed: 11/18/22 18:02> Gait exam (Neuro): Normal gait present <DAYANA Marshall - Last Filed: 11/18/22 18:02> Extrem: General: Yes normal to inspection <DAYANA Marshall - Last Filed: 11/18/22 18:02> Course Course Course Narrative: RME - 27 yo female presents to the ER for evaluation of vaginal bleeding x14 days. Called OB b/c she is feeling lightheaded associated with worsening low back pain. Using 2 pads per hour. Has nexplanon implant. Will check labs. <DAYANA Braun - Last Filed: 11/18/22 11:51> RME - 27 yo female presents to the ER for evaluation of vaginal bleeding x14 days. Called OB b/c she is feeling lightheaded associated with worsening low back pain. Using 2 pads per hour. Has nexplanon implant. Will check labs. -1700--no leukocytosis. H&H stable. Labs otherwise reassuring. Beta quant negative -UA with blood and rbc's, not infected -1728--consulted OBGYN Dr. Whitley who recommended close outpatient follow-up and strict return precautions to return to the ED if bleeding/pain persists or worsens US pelvic and transvaginal IMPRESSION: Normal ultrasound of the pelvis. ? Results discussed with patient including worrisome signs and symptoms and strict return precautions, and when to return to the emergency department. They verbalized understanding and feel safe for discharge at this time. <DAYANA Marshall - Last Filed: 11/18/22 18:02> Medical Decision Making Medical Decision Making MDM Narrative: 27-year-old female with a past medical history of asthma presenting to the ED complaining of heavy vaginal bleeding x 14 days, filling about 10 thin pads daily. On exam vital signs stable, NAD, nontoxic appearing, abdomen soft with mild suprapubic tenderness, no rebound or guarding, no CMT. On pelvic exam brown discharge noted, no active bleeding or hemorrhage. No CMT, mild left adnexal tenderness. Concern for DUB vs STI vs ovarian cyst vs missed . Lower suspicion for ovarian torsion or TOA. Unlikely appendicitis or renal stone Plan: Labs, UA, STI testing, pelvic ultrasound, Ob consult Please refer to course for remaining clinical decision making, interpretation of labs/imaging results, and discussions with consultants and/or family members. <DAYANA Marshall - Last Filed: 11/18/22 18:02> Differential Diagnosis Differential Diagnoses: The differential diagnosis associated with the presentation includes <DAYANA Marshall - Last Filed: 11/18/22 18:02> as above <DAYANA Marshall - Last Filed: 11/18/22 18:02> Consult Healthcare Provider Management of the patient was discussed with: [employer] <DAYANA Marshall - Last Filed: 11/18/22 18:02> Lab Data MDM Lab Attestation statement: I reviewed the patient's lab results. <DAYANA Marshall - Last Filed: 11/18/22 18:02> Result Diagrams: 11/18/22 12:13 11/18/22 12:13 <DAYANA Braun - Last Filed: 11/18/22 11:51> Labs: Lab Results 11/18/22 11/18/22 11/18/22 Range/Units 12:13 12:13 12:13 WBC 8.7 (4.8-10.8) X10*3/uL RBC 4.89 (4.20-5.50) X10*6/uL Hgb 13.8 (12.0-16.0) g/dl Hct 42.7 (37.0-47.0) % MCV 87.3 (80.0-98.0) fL MCH 28.2 (27.0-33.0) pg MCHC 32.3 (31.0-35.0) g/dl RDW 11.9 (11.0-16.0) % Plt Count 261 (160-400) X10*3/uL MPV 9.9 (9.4-12.3) fL Immature Gran % (Auto) 0.3 (0.0-0.4) % Neut % (Auto) 61.1 (45-73) % Lymph % (Auto) 33.3 (20-40) % Park % (Auto) 4.3 (2-11) % Eos % (Auto) 0.8 (0-4) % Baso % (Auto) 0.2 (0-2) % Lymph # (Auto) 2.9 (1.2-4.9) X10*3/uL Park # (Auto) 0.4 (0.1-1.2) X10*3/uL Eos # (Auto) 0.1 (0.0-0.4) X10*3/uL Baso # (Auto) 0.0 (0.0-0.2) X10*3/uL Abs Immat Gran (auto) 0.03 (0.00-0.03) X10*3/uL Absolute Neuts (auto) 5.3 (2.0-8.3) x10*3/uL Absolute Nucleated RBC 0.000 (0.0-0.012) X10*3/uL Nucleated RBC % (auto) 0.0 (0.0-0.2) /100WBC PT 11.3 (10.0-13.1) SEC INR 1.0 (0.9-1.1) APTT 34.2 (26.0-36.4) SEC Sodium 139 (135-145) mmol/L Potassium 4.1 (3.3-5.1) mmol/L Chloride 108 (96-108) mmol/L Carbon Dioxide 22 (22-29) mmol/L Anion Gap 13 (12-20) BUN 9 (9-16) mg/dL Creatinine 0.57 (0.5-1.4) mg/dL Estim Creat Clear Calc 149.9 Estimated GFR > 60 Random Glucose 113 (60-115) mg/dL Calcium 8.8 (8.4-10.2) mg/dL Magnesium 2.0 (1.6-2.6) mg/dL Total Bilirubin 0.4 (0.0-1.0) mg/dL Direct Bilirubin < 0.2 (0.0-0.5) mg/dL AST 19 (5-31) U/L ALT 24 (0-31) U/L Alkaline Phosphatase 87 (39-117) U/L Total Protein 7.2 (6.5-8.0) g/dL Albumin 4.0 (3.5-5.0) g/dL Beta HCG, Quant < 2 mIU/mL Urine Color Urine Appearance Urine pH (5.0-9.0) Ur Specific [place] (1.005-1.025) Urine Protein (Neg-Trace) mg/dL Urine Glucose (UA) (Negative) mg/dL Urine Ketones (Negative) mg/dL Urine Blood (Negative) Urine Nitrite (Negative) Ur Leukocyte Esterase (Negative) Urine RBC (0-2) /HPF Urine WBC (0-5) /HPF Ur Squamous Epith Cells (0-2) /HPF Urine Bacteria (None Seen) Hyaline Casts (0-2) /LPF 11/18/22 Range/Units 12:23 WBC (4.8-10.8) X10*3/uL RBC (4.20-5.50) X10*6/uL Hgb (12.0-16.0) g/dl Hct (37.0-47.0) % MCV (80.0-98.0) fL MCH (27.0-33.0) pg MCHC (31.0-35.0) g/dl RDW (11.0-16.0) % Plt Count (160-400) X10*3/uL MPV (9.4-12.3) fL Immature Gran % (Auto) (0.0-0.4) % Neut % (Auto) (45-73) % Lymph % (Auto) (20-40) % Park % (Auto) (2-11) % Eos % (Auto) (0-4) % Baso % (Auto) (0-2) % Lymph # (Auto) (1.2-4.9) X10*3/uL Park # (Auto) (0.1-1.2) X10*3/uL Eos # (Auto) (0.0-0.4) X10*3/uL Baso # (Auto) (0.0-0.2) X10*3/uL Abs Immat Gran (auto) (0.00-0.03) X10*3/uL Absolute Neuts (auto) (2.0-8.3) x10*3/uL Absolute Nucleated RBC (0.0-0.012) X10*3/uL Nucleated RBC % (auto) (0.0-0.2) /100WBC PT (10.0-13.1) SEC INR (0.9-1.1) APTT (26.0-36.4) SEC Sodium (135-145) mmol/L Potassium (3.3-5.1) mmol/L Chloride (96-108) mmol/L Carbon Dioxide (22-29) mmol/L Anion Gap (12-20) BUN (9-16) mg/dL Creatinine (0.5-1.4) mg/dL Estim Creat Clear Calc Estimated GFR Random Glucose (60-115) mg/dL Calcium (8.4-10.2) mg/dL Magnesium (1.6-2.6) mg/dL Total Bilirubin (0.0-1.0) mg/dL Direct Bilirubin (0.0-0.5) mg/dL AST (5-31) U/L ALT (0-31) U/L Alkaline Phosphatase (39-117) U/L Total Protein (6.5-8.0) g/dL Albumin (3.5-5.0) g/dL Beta HCG, Quant mIU/mL Urine Color Yellow Urine Appearance Clear Urine pH 5.5 (5.0-9.0) Ur Specific [place] 1.025 (1.005-1.025) Urine Protein Trace (Neg-Trace) mg/dL Urine Glucose (UA) Negative (Negative) mg/dL Urine Ketones Negative (Negative) mg/dL Urine Blood Large (3+) H (Negative) Urine Nitrite Negative (Negative) Ur Leukocyte Esterase Trace H (Negative) Urine RBC 11-20 H (0-2) /HPF Urine WBC 0-5 (0-5) /HPF Ur Squamous Epith Cells 3-5 (0-2) /HPF Urine Bacteria None Seen (None Seen) Hyaline Casts 0-2 (0-2) /LPF <DAYANA Braun - Last Filed: 11/18/22 11:51> Lab Results 11/18/22 11/18/22 11/18/22 Range/Units 12:13 12:13 12:13 WBC 8.7 (4.8-10.8) X10*3/uL RBC 4.89 (4.20-5.50) X10*6/uL Hgb 13.8 (12.0-16.0) g/dl Hct 42.7 (37.0-47.0) % MCV 87.3 (80.0-98.0) fL MCH 28.2 (27.0-33.0) pg MCHC 32.3 (31.0-35.0) g/dl RDW 11.9 (11.0-16.0) % Plt Count 261 (160-400) X10*3/uL MPV 9.9 (9.4-12.3) fL Immature Gran % (Auto) 0.3 (0.0-0.4) % Neut % (Auto) 61.1 (45-73) % Lymph % (Auto) 33.3 (20-40) % Park % (Auto) 4.3 (2-11) % Eos % (Auto) 0.8 (0-4) % Baso % (Auto) 0.2 (0-2) % Lymph # (Auto) 2.9 (1.2-4.9) X10*3/uL Park # (Auto) 0.4 (0.1-1.2) X10*3/uL Eos # (Auto) 0.1 (0.0-0.4) X10*3/uL Baso # (Auto) 0.0 (0.0-0.2) X10*3/uL Abs Immat Gran (auto) 0.03 (0.00-0.03) X10*3/uL Absolute Neuts (auto) 5.3 (2.0-8.3) x10*3/uL Absolute Nucleated RBC 0.000 (0.0-0.012) X10*3/uL Nucleated RBC % (auto) 0.0 (0.0-0.2) /100WBC PT 11.3 (10.0-13.1) SEC INR 1.0 (0.9-1.1) APTT 34.2 (26.0-36.4) SEC Sodium 139 (135-145) mmol/L Potassium 4.1 (3.3-5.1) mmol/L Chloride 108 (96-108) mmol/L Carbon Dioxide 22 (22-29) mmol/L Anion Gap 13 (12-20) BUN 9 (9-16) mg/dL Creatinine 0.57 (0.5-1.4) mg/dL Estim Creat Clear Calc 149.9 Estimated GFR > 60 Random Glucose 113 (60-115) mg/dL Calcium 8.8 (8.4-10.2) mg/dL Magnesium 2.0 (1.6-2.6) mg/dL Total Bilirubin 0.4 (0.0-1.0) mg/dL Direct Bilirubin < 0.2 (0.0-0.5) mg/dL AST 19 (5-31) U/L ALT 24 (0-31) U/L Alkaline Phosphatase 87 (39-117) U/L Total Protein 7.2 (6.5-8.0) g/dL Albumin 4.0 (3.5-5.0) g/dL Beta HCG, Quant < 2 mIU/mL Urine Color Urine Appearance Urine pH (5.0-9.0) Ur Specific [place] (1.005-1.025) Urine Protein (Neg-Trace) mg/dL Urine Glucose (UA) (Negative) mg/dL Urine Ketones (Negative) mg/dL Urine Blood (Negative) Urine Nitrite (Negative) Ur Leukocyte Esterase (Negative) Urine RBC (0-2) /HPF Urine WBC (0-5) /HPF Ur Squamous Epith Cells (0-2) /HPF Urine Bacteria (None Seen) Hyaline Casts (0-2) /LPF 11/18/22 Range/Units 12:23 WBC (4.8-10.8) X10*3/uL RBC (4.20-5.50) X10*6/uL Hgb (12.0-16.0) g/dl Hct (37.0-47.0) % MCV (80.0-98.0) fL MCH (27.0-33.0) pg MCHC (31.0-35.0) g/dl RDW (11.0-16.0) % Plt Count (160-400) X10*3/uL MPV (9.4-12.3) fL Immature Gran % (Auto) (0.0-0.4) % Neut % (Auto) (45-73) % Lymph % (Auto) (20-40) % Park % (Auto) (2-11) % Eos % (Auto) (0-4) % Baso % (Auto) (0-2) % Lymph # (Auto) (1.2-4.9) X10*3/uL Park # (Auto) (0.1-1.2) X10*3/uL Eos # (Auto) (0.0-0.4) X10*3/uL Baso # (Auto) (0.0-0.2) X10*3/uL Abs Immat Gran (auto) (0.00-0.03) X10*3/uL Absolute Neuts (auto) (2.0-8.3) x10*3/uL Absolute Nucleated RBC (0.0-0.012) X10*3/uL Nucleated RBC % (auto) (0.0-0.2) /100WBC PT (10.0-13.1) SEC INR (0.9-1.1) APTT (26.0-36.4) SEC Sodium (135-145) mmol/L Potassium (3.3-5.1) mmol/L Chloride (96-108) mmol/L Carbon Dioxide (22-29) mmol/L Anion Gap (12-20) BUN (9-16) mg/dL Creatinine (0.5-1.4) mg/dL Estim Creat Clear Calc Estimated GFR Random Glucose (60-115) mg/dL Calcium (8.4-10.2) mg/dL Magnesium (1.6-2.6) mg/dL Total Bilirubin (0.0-1.0) mg/dL Direct Bilirubin (0.0-0.5) mg/dL AST (5-31) U/L ALT (0-31) U/L Alkaline Phosphatase (39-117) U/L Total Protein (6.5-8.0) g/dL Albumin (3.5-5.0) g/dL Beta HCG, Quant mIU/mL Urine Color Yellow Urine Appearance Clear Urine pH 5.5 (5.0-9.0) Ur Specific [place] 1.025 (1.005-1.025) Urine Protein Trace (Neg-Trace) mg/dL Urine Glucose (UA) Negative (Negative) mg/dL Urine Ketones Negative (Negative) mg/dL Urine Blood Large (3+) H (Negative) Urine Nitrite Negative (Negative) Ur Leukocyte Esterase Trace H (Negative) Urine RBC 11-20 H (0-2) /HPF Urine WBC 0-5 (0-5) /HPF Ur Squamous Epith Cells 3-5 (0-2) /HPF Urine Bacteria None Seen (None Seen) Hyaline Casts 0-2 (0-2) /LPF <DAYANA Marshall - Last Filed: 11/18/22 18:02> Radiology Impression Discussion of test interpretation with radiology: I have reviewed the radiologist's reading. <ADYANA Marshall - Last Filed: 11/18/22 18:02> External Record Review External record reviewed: Outpatient record and Prior outpatient labs <DAYANA Marshall Last Filed: 11/18/22 18:02> Discharge Plan Discharge Clinical Impression: DUB (dysfunctional uterine bleeding) <DAYANA Braun Last Filed: 11/18/22 11:51> Patient Disposition: Still a Patient <DAYANA Braun - Last Filed: 11/18/22 11:51> Instructions: Dysfunctional Uterine Bleeding (ED) <DAYANA Braun Last Filed: 11/18/22 11:51> Additional Instructions: Your blood work was reassuring. We tested you for sexually transmitted infections these results will be back in 48-72 hours, you will be contacted with positive results only Please have very close follow-up with your OBGYN or our OBGYN If your symptoms persist, worsen, you develop constant or worsening pain, increased or worsening bleeding, nausea/vomiting, or fever return to the ED immediately <DAYANA Braun - Last Filed: 11/18/22 11:51> Prescriptions: No Action hydroxyzine HCl 25 mg tablet 25 mg PO BID PRN (Reason: anxiety) Qty: 20 0RF polyethylene glycol 3350 [Miralax] 17 gram powder in packet 17 g PO DAILY Qty: 14 0RF docusate sodium [Colace] 100 mg capsule 100 mg PO BID Qty: 30 0RF valacyclovir [Valtrex] 1 gram tablet 1,000 mg PO Q12H 7 Days Qty: 14 0RF nitrofurantoin monohyd/m-cryst [Macrobid] 100 mg capsule 100 mg PO Q12H 7 Days Qty: 14 0RF Rx Instructions: must administer with a meal/food <DAYANA Braun Last Filed: 11/18/22 11:51> Referrals: [facility] [place] Women's Services [Provider Group] - 3 days <DAYANA Braun Last Filed: 11/18/22 11:51>
[2022-11-18 11:48] VITALS: BP 118/80; PULSE 94; RESP 16; TEMP 36.8; O2SAT 98; BMI 36.2
[2022-11-18 12:17] LABS: MANUAL DIFF FLAG NO
[2022-11-18 12:23] LABS: Basophils Percent Auto 0.2 % (0-2); Eosinophils Absolute Auto 0.1 X10*3/uL (0.0-0.4); Eosinophils Percent Auto 0.8 % (0-4); Hematocrit 42.7 % (37.0-47.0); Hemoglobin 13.8 g/dl (12.0-16.0); Imm Gran Abs Auto 0.03 X10*3/uL (0.00-0.03); Imm Gran Pct Auto 0.3 % (0.0-0.4); Lymphocytes Absolute Auto 2.9 X10*3/uL (1.2-4.9); Lymphocytes Percent Auto 33.3 % (20-40); Mean Corpuscular HGB Conc 32.3 g/dl (31.0-35.0); Mean Corpuscular Hemoglobin 28.2 pg (27.0-33.0); Mean Corpuscular Volume 87.3 fL (80.0-98.0); Mean Platelet Volume 9.9 fL (9.4-12.3); Monocytes Absolute Auto 0.4 X10*3/uL (0.1-1.2); Monocytes Percent Auto 4.3 % (2-11); Neutrophils Absolute Auto 5.3 x10*3/uL (2.0-8.3); Neutrophils Percent Auto 61.1 % (45-73); Platelet Count 261 X10*3/uL (160-400); Prothrombin Time 11.3 SEC (10.0-13.1); Red Blood Count 4.89 X10*6/uL (4.20-5.50); Red Cell Distribution Width 11.9 % (11.0-16.0); White Blood Count 8.7 X10*3/uL (4.8-10.8)
[2022-11-18 12:26] LABS: Partial Thromboplastin Time 34.2 SEC (26.0-36.4)
[2022-11-18 12:34] LABS: Appearance Urine Clear; Color Urine Yellow; Glucose Urine UA Negative (Negative); Leukocyte Esterase Urine Trace (Negative); Nitrite Urine Negative (Negative); PH 5.5 (5.0-9.0); Specific Gravity - Urine 1.025 (1.005-1.025); UMIC TRIGGER UACC YES; Urine Blood Large (3+) (Negative); Urine Ketones Negative (Negative); Urine Protein Trace mg/dL (Neg-Trace)
[2022-11-18 12:39] LABS: Alanine Aminotransferase 24 U/L (0-31); Alkaline Phosphatase 87 U/L (39-117); Anion Gap 13 (12-20); Aspartate Amino Transferase 19 U/L (5-31); Bilirubin Direct < 0.2 mg/dL (0.0-0.5); Bilirubin Total 0.4 mg/dL (0.0-1.0); Blood Urea Nitrogen 9 mg/dL (9-16); Calcium 8.8 mg/dL (8.4-10.2); Carbon Dioxide 22 mmol/L (22-29); Chloride 108 mmol/L (96-108); Creatinine Clr Calc Pharmacy 149.9; Estimated Glomerular Filt Rate > 60; Glucose Random 113 mg/dL (60-115); HCG Quantitative < 2 mIU/mL; Potassium 4.1 mmol/L (3.3-5.1); Sodium 139 mmol/L (135-145); Total Protein 7.2 g/dL (6.5-8.0)
[2022-11-18 12:40] LABS: Bacteria Urine None Seen (None Seen); Hyaline Casts Urine 0-2 /LPF (0-2); WBC Urine 0-5 /HPF (0-5)
[2022-11-18 14:24] VITALS: BP 123/85; PULSE 84; RESP 16; TEMP 36.9; O2SAT 99
--- NOTE | 2022-11-18 18:47 | PM.GYNCN ---
SENIOR CORPORATE ACCOUNTANT - CN: HPI Data of Consult Consult date: 11/18/22 Primary Care Provider: Denver Baez MD Consult Narrative Narrative: 18:50> Late entry note I was consulted at 17:47 on Belle Triana who is a 27 year old presenting to the ED complaining of heavy vaginal bleeding of 14 day duration associated with pelvic cramping and passage of blood clots, no fever, chills, no nausea, or vomiting, no vaginal discharge, or any other complaints. The patient has Nexplanon. In the emergency room the following workup was done: H&H 13.8/42.7, hCG negative, pelvic ultrasound unremarkable. GC/chlamydia, BV panel Trichomonas all pending cc:: CC: OB [facility] Past Medical History Medical History Asthma Social History Social History Alcohol intake: former Advance Directives: No Advance Directives Information Provided: No Meds Allergies Allergy/AdvReac Type Severity Reaction Status Date / Time bee pollen [BEE STINGS] Allergy Severe ANAPHYLAXIS Verified 11/18/22 11:48 SENIOR CORPORATE ACCOUNTANT Physical Exam Vitals Vital signs: Temp Pulse Resp BP Pulse Ox O2 Del Method 98.5 F 84 16 123/85 99 11/18/22 14:24 11/18/22 14:24 11/18/22 14:24 11/18/22 14:24 11/18/22 14:24 11/18/22 14:24 BMI result Body Mass Index 36.2 Additional Comments: Physical exam reported by DAYANA Vazquez as the following: Adomen: soft , no rebound or guarding Pelvic exam: brown discharge noted, no active bleeding or hemorrhage, No CMT. SENIOR CORPORATE ACCOUNTANT - Results Labs 11/18/22 12:13 11/18/22 12:13 Labs: Short CBC 11/18/22 Range/Units 12:13 WBC 8.7 (4.8-10.8) X10*3/uL Hgb 13.8 (12.0-16.0) g/dl Hct 42.7 (37.0-47.0) % Plt Count 261 (160-400) X10*3/uL BMP 11/18/22 12:13 Sodium 139 Potassium 4.1 Chloride 108 Carbon Dioxide 22 BUN 9 Creatinine 0.57 Calcium 8.8 Liver Function 11/18/22 Range/Units 12:13 Total Bilirubin 0.4 (0.0-1.0) mg/dL Direct Bilirubin < 0.2 (0.0-0.5) mg/dL AST 19 (5-31) U/L ALT 24 (0-31) U/L Alkaline Phosphatase 87 (39-117) U/L Albumin 4.0 (3.5-5.0) g/dL Urine 11/18/22 Range/Units 12:23 Urine Color Yellow Urine Appearance Clear Urine pH 5.5 (5.0-9.0) Ur Specific [place] 1.025 (1.005-1.025) Urine Protein Trace (Neg-Trace) mg/dL Urine Glucose (UA) Negative (Negative) mg/dL Assessment and Plan (1) DUB (dysfunctional uterine bleeding): Status: Acute Plan Recommended to DAYANA Marshall the following: Since H&H is stable , there is no evidence of active vaginal bleeding on pelvic exam, and the patient has stable vital signs, I recommended a close follow up in an outpatient OBGYN office within 48 hours, instructions to be given to the patient to come back to the emergency room in case of fever above 100.4, persistence or worsening of vaginal bleeding, abdominal /pelvic pain. I spent a total of 20 minute reviewing the chart, communicating the emergency room provider and documenting in the medical record Time Spent With Patient Time: Total time managing care of this patient today ____ minutes.
[2022-11-19 03:08] LABS: CT PCR NOT DETECTED (Not Detect.); NG PCR NOT DETECTED (Not Detect.)
[2022-11-19 10:58] LABS: BV Int Neg Control Negative (Negative); BV Int Pos Control Positive (Positive)
== END 2022-11-18 18:14 | disposition home or self-care (01) ==
PROVIDERS: Physician Assistant; Emergency Provider Emergency Medicine; PCP Internal Medicine
DX: N93.8 Other specified abnormal uterine and vaginal bleeding (principal); M54.50 Low back pain, unspecified; Z79.899 Other long term (current) drug therapy
CPT/HCPCS: 0353U; 36415; 76830; 76856; 80048; 80076; 81001; 83735; 84702; 85025; 85610; 85730; 87480; 87510; 87660; 99283; 99284